=== PATIENT | male | born 1940 ===

== ENCOUNTER 2018-02-18 11:46 | Emergency (ER) | payer OTHER ==
[2018-02-18 11:55] VITALS: RESP 18; TEMP 98; O2SAT 98
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
[2018-02-18 13:35] VITALS: BP 126/76; PULSE 78
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
== END 2018-02-18 13:35 | disposition home or self-care (01) ==
LOC: C.ER 11:46
DX: S80.12XA Contusion of left lower leg, initial encounter (principal); S80.11XA Contusion of right lower leg, initial encounter; V09.20XA Pedestrian injured in traffic accident involving unspecified motor vehicles, initial encounter; Y93.01 Activity, walking, marching and hiking